=== PATIENT | male | born 1970 | race Caucasian/White ===

== ENCOUNTER 2020-03-27 13:41 | Outpatient (REF) | payer BC, SELFPAY ==
--- NOTE | 2020-03-27 13:51 | XR_ITS ---
EXAMINATION: XR KNEES, STANDING AP XR KNEE, RIGHT CLINICAL INFORMATION: Right knee arthroplasty. Follow up. M25.561 - Pain in right knee COMPARISON: Standing AP knees and right knee 11/18/2018, right knee 08/02/2018. TECHNIQUE: Standing AP view of both knees is performed along with lateral view right knee. FINDINGS: Right: Prior knee arthroplasty. Hardware intact. No fracture or dislocation. Suprapatellar effusion decreased in size from prior exam 11/18/2018. No osteolysis or periostitis. There is a small circumscribed cyst proximal anterior tibia again seen, possibly related to prior ACL repair. Left: No focal joint narrowing or erosive change or chondrocalcinosis. Normal bony mineralization. XR/XR knee RT 2V IMPRESSION: 1. Right: Prior knee arthroplasty. Suprapatellar effusion decreased since prior exam 11/18/2018. No osteolysis. 2. Left: Unremarkable left knee.
--- NOTE | 2020-03-27 13:51 | XR_ITS ---
EXAMINATION: XR KNEES, STANDING AP XR KNEE, RIGHT CLINICAL INFORMATION: Right knee arthroplasty. Follow up. M25.561 - Pain in right knee COMPARISON: Standing AP knees and right knee 11/18/2018, right knee 08/02/2018. TECHNIQUE: Standing AP view of both knees is performed along with lateral view right knee. FINDINGS: Right: Prior knee arthroplasty. Hardware intact. No fracture or dislocation. Suprapatellar effusion decreased in size from prior exam 11/18/2018. No osteolysis or periostitis. There is a small circumscribed cyst proximal anterior tibia again seen, possibly related to prior ACL repair. Left: No focal joint narrowing or erosive change or chondrocalcinosis. Normal bony mineralization. XR/XR knee standing BI IMPRESSION: 1. Right: Prior knee arthroplasty. Suprapatellar effusion decreased since prior exam 11/18/2018. No osteolysis. 2. Left: Unremarkable left knee.
== END 2020-03-27 13:42 | disposition home or self-care (01) ==
LOC: HO.HOSX 13:41
PROVIDERS: PCP Internal Medicine; Visit Provider Orthopaedic Surgery
DX: M25.561 Pain in right knee (principal); Z96.651 Presence of right artificial knee joint
CPT/HCPCS: 73560; 73565

== ENCOUNTER 2021-01-04 14:49 | Outpatient (REF) | payer BC, SELFPAY ==
--- NOTE | ~2021-01-04 | XR_ITS ---
EXAMINATION: X-RAY HAND AND WRIST, RIGHT CLINICAL INFORMATION: Injury COMPARISON: None TECHNIQUE: PA, oblique, and lateral views of the right hand FINDINGS: There is normal alignment without acute fracture or dislocation. There is narrowing of the radiocarpal, intercarpal, DIP, and PIP joint spaces with associated hypertrophic change and subchondral cystic formation. Overlying soft tissues are intact. XR/XR hand wrist RT IMPRESSION: No acute bony abnormality of the right wrist and hand. Mild to moderate osteoarthritis.
== END 2021-01-04 14:50 | disposition home or self-care (01) ==
LOC: HO.HMGCX 14:49
PROVIDERS: PCP Internal Medicine; Visit Provider Physician Assistant Medical
DX: S69.90XA Unspecified injury of unspecified wrist, hand and finger(s), initial encounter (principal)
CPT/HCPCS: 73110; 73130

== ENCOUNTER 2022-02-27 16:18 | Emergency (ER) | payer OTHER, BC, SELFPAY ==
--- NOTE | ~2022-02-27 | US_ITS ---
EXAMINATION: ULTRASOUND EXTREMITY NONVASCULAR. CLINICAL INFORMATION: Question biceps rupture. Pain. COMPARISON: None TECHNIQUE: Limited ultrasound imaging through the left upper biceps was performed. FINDINGS: The right biceps is enlarged, heterogeneous avascular mass likely a hematoma. This could be secondary to biceps rupture. However the proximal and distal ends of the biceps are not included in the [id number] limiting evaluation. The heterogeneous area measures 6.5 x 2.9 x 3.2 cm. US/US extremity nonvascular IMPRESSION: Heterogeneous avascular masslike area in the left upper biceps likely hematoma secondary to total or partial rupture. The exam is limited as the proximal and distal end of the biceps are not imaged in contiguous plane.
--- NOTE | 2022-02-27 18:16 | ED_ITS ---
HPI - Extremity Injury (Upper) General Chief Complaint: Extremity Injury, Upper <Marcie Martinez CNP - Last Filed: 02/27/22 19:28> Stated Complaint: R arm inj. at work <Marcie Martinez CNP - Last Filed: 02/27/22 19:28> Time Seen by Provider: 02/27/22 18:31 <Marcie Martinez CNP - Last Filed: 02/27/22 19:28> Source: patient <SONIA Cardenas - Last Filed: 02/27/22 21:00> Mode of arrival: ambulatory <SONIA Cardenas - Last Filed: 02/27/22 21:00> Limitations: no limitations <SONIA Cardenas Last Filed: 02/27/22 21:00> History of Present Illness HPI narrative: This is a 51-year-old male presenting to the emergency department with severe pain to his left upper arm status post heavy lifting while at work. Patient tells me he was lifting a case of beers at approximately noon today and while lifting he felt a pop and pain to his left bicep region, he tells me he felt like something popped, moved and then it became extremely painful. Since then he has also noted significant bruising to the area. He tells me the pain radiated down his arm. He tells me it is painful to flex his left elbow. I also hurts if he tries to extend his left arm. Patient denies numbness or tingling. Patient is not taking fluoroquinolones recently. <SONIA Cardenas - Last Filed: 02/27/22 21:00> Related Data Home Medications: Previous Rx's Medication Instructions Recorded naproxen 500 mg tablet 500 mg PO BID PRN pain #30 tabs 01/04/21 oxycodone 5 mg tablet 5 mg PO Q8H PRN pain #14 tabs 02/27/22 <Marcie Martinez CNP - Last Filed: 02/27/22 19:28> Allergies/Adverse Reactions: Allergies Allergy/AdvReac Type Severity Reaction Status Date / Time No Known Allergies Allergy Verified 02/27/22 18:21 [No Known Allergies*] <Marcie Martinez CNP - Last Filed: 02/27/22 19:28> Review of Systems Review of Systems: Constitutional : No Weight loss, No Fever, No Chills, No Fatigue, No Malaise ENT/Mouth : No sore throat, No Rhinorrhea Eyes: No Eye Pain, No Swelling, No Redness Cardiovascular : No Chest Pain, No SOB, No Dyspnea on Exertion, No Orthopnea, No Edema, No Palpitations Respiratory : No Cough, No Sputum, No Wheezing Gastrointestinal : No Nausea, No Vomiting, No Diarrhea, No Constipation, No abdominal Pain, No Hematochezia, No Melena Genitourinary : No Dysuria, No Urinary Frequency, No Hematuria, Musculoskeletal : No joint pain, No Myalgias, No Joint swelling, + left upper arm pain Skin : No Skin Lesions, No rash Neuro : No Weakness, No Numbness, No Dizziness, No Headache Psych : No Anxiety/Panic, No Depression All other systems reviewed and are negative <SONIA Cardenas - Last Filed: 02/27/22 21:00> Yes all other systems are reviewed and are negative <SONIA Cardenas - Last Filed: 02/27/22 21:00> [facility] Past Medical History Attestation statement: The following information was validated with the patient. <SONIA Cardenas - Last Filed: 02/27/22 21:00> Source: old records reviewed and nursing notes reviewed <SONIA Cardenas - Last Filed: 02/27/22 21:00> Social History Social History: Social History Advance Directives: No Advance Directives Information Provided: No <Marcie Martinez CNP - Last Filed: 02/27/22 19:28> Physical Exam Vital Signs: Vital Signs: Last Vital Signs Temp 98.2 F 02/27/22 19:28 Pulse 87 02/27/22 19:28 Resp 16 02/27/22 19:28 BP 154/104 H 02/27/22 19:28 Pulse Ox 98 02/27/22 19:28 O2 Del Method 02/27/22 19:28 BMI result Body Mass Index 31.1 <Marcie Martinez CNP - Last Filed: 12/30/22 19:28> Vital Signs: Last Vital Signs Temp 98.2 F 02/27/22 19:28 Pulse 87 02/27/22 19:28 Resp 16 02/27/22 19:28 BP 154/104 H 02/27/22 19:28 Pulse Ox 98 02/27/22 19:28 O2 Del Method 02/27/22 19:28 BMI result Body Mass Index 31.1 Patient is noted to be hypertensive likely secondary to pain. <SONIA Cardenas - Last Filed: 02/27/22 21:00> Appearance: Alert.? Oriented X3.? No acute distress.? Head: Normocephalic, atraumatic, no step-offs or deformities Eyes: Pupils equal, round and reactive to light.? CVS: Normal heart rate and rhythm.? Pulses normal.? Respiratory: No respiratory distress.? Breath sounds normal.? Abdomen: Soft and nontender.? Skin: Skin warm and dry.? Normal skin color.? Normal skin turgor.? Extremities: No lower extremity edema.? No calf ttp. 5/5 strength to bilateral upper and lower extremitie. Ecchymosis noted to left upper arm in the biceps region. There is a step-off noted to the proximal aspect of biceps head. There is overlying pain to palpation. Patient has pain with range of motion of elbow when flexing greater than 90 degrees. 2+ radial and brachial pulses equal bilateral. Capillary refill less than 2 seconds equal bilateral to upper extremity digits. Normal sensation to upper extremities. Normal right upper extremity. Normal sensation to left upper extremity. Neuro: Oriented X 3.? No motor deficit.? No sensory deficit. CN 2-12 intact <SONIA Cardenas - Last Filed: 02/27/22 21:00> Course Course Course Narrative: This is an RME: Additional HPI, ROS, PE not included below will be deferred to primary provider. Patient is a 51-year-old left-hand dominant male who presents to the emergency department for evaluation of traumatic left arm pain. Reports today around 12:00 he bent forward to lift a few cases of beer, felt sudden bobbing to left bicep region, followed by pain radiating down arm towards elbow, unable to flex elbow grater than 90 degrees, unable to completely extend arm. Denies numbness or tingling. Took APAP 17:45, ibuprofen 13:00. PE: Deformity over biceps, Diffuse tenderness upon palpation, bruising, swelling. Plan: US LUE, non-vascular, concerns for bicep tendon rupture, US contacted, will be able to perform. <Marcie Martinez CNP - Last Filed: 02/27/22 19:28> Reevaluation(s) Reevaluation #1: I did speak to the orthopedic team who recommends a sling for comfort and for patient to follow-up next week for follow-up. I did repeat exam on patient neurovascular exam remains intact, 2+ radial pulses equal bilateral. There is a step-off in the proximal aspect of biceps. Normal sensation bilaterally. Patient does appear uncomfortable fentanyl given for pain. Ultrasound with suspected biceps tendon rupture. Which is consistent with my physical examination. <SONIA Cardenas - Last Filed: 02/27/22 21:00> Time: 20:52 <SONIA Cardenas - Last Filed: 02/27/22 21:00> Reevaluation #2: Patient's pain is well controlled. Will be discharged home with oxycodone advised him to follow-up with the orthopedic team as soon as possible. Educated on worrisome signs and symptoms. Educated him on signs and symptoms of compartment syndrome. Educated patient on diagnosis and treatment plan, answered all question, patient verbalizes understanding. At this time patient will be discharged home, advised to return with new or worsening symptoms. Educated on worrisome signs and symptoms and when to return. At this time I feel comfortable discharge home. <SONIA Cardenas - Last Filed: 02/27/22 21:00> Time: 20:58 <SONIA Cardenas - Last Filed: 02/27/22 21:00> Medications Administered Discontinued Medications Generic Name Dose Route Start Last Admin Trade Name Freq PRN Reason Stop Dose Admin Fentanyl 50 mcg 02/27/22 19:08 02/27/22 19:48 Fentanyl Citrate/Pf 100 Mcg/2 Ml Vial IVPUSH 02/27/22 19:09 50 mcg ONCE ONE Administration Protocol <Marcie Martinez CNP - Last Filed: 02/27/22 19:28> Medications Administered Discontinued Medications Generic Name Dose Route Start Last Admin Trade Name Connie PRN Reason Stop Dose Admin Fentanyl 50 mcg 02/27/22 19:08 02/27/22 19:48 Fentanyl Citrate/Pf 100 Mcg/2 Ml Vial IVPUSH 02/27/22 19:09 50 mcg ONCE ONE Administration Protocol <SONIA Cardenas - Last Filed: 02/27/22 21:00> Medical Decision Making Medical Decision Making [facility] Narrative: 1832 51-year-old previously healthy male presents with complaints of left bicep pain that started at noon after heavy lifting, felt a pop and then severe pain that radiated down his arm. Progressively worsening pain as well as ecchymosis forming Physical exam significant for No lower extremity edema.? No calf ttp. 5/5 strength to bilateral upper and lower extremitie. Ecchymosis noted to left upper arm in the biceps region. There is a step-off noted to the proximal aspect of biceps head. There is overlying pain to palpation. Patient has pain with range of motion of elbow when flexing greater than 90 degrees. 2+ radial and brachial pulses equal bilateral. Capillary refill less than 2 seconds equal bilateral to upper extremity digits. Normal sensation to upper extremities. Normal right upper extremity. Normal sensation to left upper extremity. Concerns for biceps tendon rupture. No signs of neurovascular compromise. Unlikely fracture dislocation. Plan at this time is ultrasound. <SONIA Cardenas - Last Filed: 02/27/22 21:00> Critical Care Time Critical Care Time Critical Care Time: Yes <SONIA Cardenas - Last Filed: 02/27/22 21:00> Total Critical Care Time: 35 <SONIA Cardenas - Last Filed: 02/27/22 21:00> Attestation: I attest to this time spent taking care of the patient, obtaining history, physical, reviewing labs, imaging, speaking to my attending, speaking to specialist. <SONIA Cardenas - Last Filed: 02/27/22 21:00> Discharge Plan Discharge Clinical Impression: Biceps tendon rupture <Marcie Martinez CNP - Last Filed: 02/27/22 19:28> Patient Disposition: Home, Self-Care <Marcie Martinez CNP - Last Filed: 02/27/22 19:28> Instructions: How to Use a Sling (ED), Tendon Rupture (ED), Compartment Syndrome (DC) <Marcie Martinez CNP - Last Filed: 02/27/22 19:28> Additional Instructions: Take your medications as prescribed. If you were prescribed antibiotics today, it is important that you take your medication to their entirety, do not skip any doses, do not finish them early. Follow-up with your primary care provider this week. Return to the emergency department with new or worsening symptoms. Such as fevers, chills, chest pain, shortness of breath, nausea, vomiting, dizziness, headache, vision changes, lethargy In case of emergency call 911 Please wear sling for comfort. Oxycodone has been sent to her pharmacy, please take this as prescribed, it can cause addiction, do not share with other people, do not take this medication with alcohol. Do not drive or operate machinery while taking this. Look out for signs of compartment syndrome as we discussed. US/US extremity nonvascular IMPRESSION: Heterogeneous avascular masslike area in the left upper biceps likely hematoma secondary to total or partial rupture. The exam is limited as the proximal and distal end of the biceps are not imaged in contiguous plane. <Marcie Martinez CNP - Last Filed: 02/27/22 19:28> Prescriptions: New oxycodone 5 mg tablet 5 mg PO Q8H PRN (Reason: pain) Qty: 14 0RF Rx Instructions: Partial Fill upon patient request. No Action naproxen 500 mg tablet 500 mg PO BID PRN (Reason: pain) Qty: 30 0RF <Marcie Martinez CNP - Last Filed: 02/27/22 19:28> Referrals: [facility] [place]Provider Group] - 3 days Mynor Walters MD [Primary Care Provider] - 2 days <Marcie Martinez CNP - Last Filed: 02/27/22 19:28> Stand Alone Forms: Work/School Release <Marcie Martinez CNP - Last Filed: 02/27/22 19:28>
[2022-02-27 18:18] VITALS: BP 184/119; PULSE 84; RESP 18; TEMP 36.4; O2SAT 99; BMI 31.1
[2022-02-27 19:28] VITALS: BP 154/104; PULSE 87; RESP 16; TEMP 36.8; O2SAT 98
[2022-02-27] MEDS: fentaNYL citrate/PF 100 MCG/2 ML VIAL 50 MCG IVPUSH ×2 (19:48→20:53)
[2022-02-27 20:53] VITALS: RESP 17
[2022-02-27 21:19] VITALS: BP 149/90; PULSE 78; RESP 16; TEMP 36.8; O2SAT 98
== END 2022-02-27 21:33 | disposition home or self-care (01) ==
PROVIDERS: Emergency Provider Emergency Medicine; PCP Ophthalmology
DX: S46.212A Strain of muscle, fascia and tendon of other parts of biceps, left arm, initial encounter (principal); X50.3XXA Overexertion from repetitive movements, initial encounter; X50.9XXA Other and unspecified overexertion or strenuous movements or postures, initial encounter; Y93.9 Activity, unspecified; Y92.9 Unspecified place or not applicable; Y99.0 Civilian activity done for income or pay; Z79.899 Other long term (current) drug therapy
CPT/HCPCS: 76882; 96374; 96376; 99283; 99284; J3010

== ENCOUNTER 2022-06-01 13:05 | Outpatient (REF) | payer BC, SELFPAY ==
--- NOTE | ~2022-06-01 | XR_ITS ---
EXAMINATION: XR KNEE, RIGHT CLINICAL INFORMATION: Right knee pain. History of replacement. Question loosening. COMPARISON: 03/27/2020 TECHNIQUE: Four views of the right knee. FINDINGS: Total right knee arthroplasty. The femoral component articulates appropriately with the tibial and patellar components. No periprosthetic lucency or fracture. There is a small joint effusion. The soft tissues are otherwise unremarkable. XR/XR knee RT 4V IMPRESSION: Total right knee arthroplasty in typical positioning and alignment. Small joint effusion.
== END 2022-06-01 13:06 | disposition home or self-care (01) ==
LOC: HO.HMGCX 13:05
PROVIDERS: PCP Internal Medicine; Visit Provider Internal Medicine
DX: M25.561 Pain in right knee (principal)
CPT/HCPCS: 73564